=== PATIENT | female | born 1935 | race Caucasian/White ===

== ENCOUNTER 2019-10-13 14:26 | Inpatient (IN) ==
[2019-10-13] MEDS ORDERED: NS 1,000 ML IV ONE ×2 (14:50→21:00)
--- NOTE | 2019-10-13 14:57 | PROVIDER DOCUMENTATION ---
HPI-General Adult - General Chief Complaint: Fall Stated Complaint: FALL / WEAK Time Seen by Provider: 10/13/19 14:34 Source: patient, family (son) Allergies/Adverse Reactions: Patient Allergies Allergy/AdvReac Type Severity Reaction Status Date / Time codeine Allergy HIVES Verified 10/13/19 16:49 Home Medications: Home Medication List Medication Instructions Recorded Confirmed Last Taken Type Cholecalciferol (Vit D3) [Vitamin 5,000 unit PO DAILY 11/02/18 10/13/19 Unknown History D] Lorazepam 0.5 mg PO BID 11/02/18 10/13/19 Unknown History Memantine [Namenda] 10 mg PO BID 11/02/18 10/13/19 Unknown History Mirtazapine 30 mg PO HS 11/02/18 10/13/19 Unknown History Potassium Chloride 20 meq PO DAILY 11/02/18 10/13/19 Unknown History Rivastigmine [Exelon 9.5MG/24Hrs] 1 each TD DAILY 11/02/18 10/13/19 Unknown History Vitamin E 1,000 unit PO DAILY 11/02/18 10/13/19 Unknown History Vortioxetine Hydrobromide 5 mg PO HS 11/02/18 10/13/19 Unknown History [Trintellix] Amlodipine [Norvasc] 5 mg PO DAILY tablet 11/05/18 10/13/19 Unknown Rx Losartan [Cozaar] 50 mg PO DAILY tablet 11/05/18 10/13/19 Unknown Rx Olanzapine 15 mg PO QHS 10/13/19 10/13/19 Unknown History - History of Present Illness -Gen Adult Nature of Presenting Problems: 84yof present to ER with c/o generalized weakness. Son reports pt has declined over the past month, increased weakness, and frequent falls. Reports a fall this morning. Denies hitting head or LOC. Pt A&Ox3. Son reports pt had difficulty feeding herself this morning. States pt is requiring more assistance with ambulation. Location of Pain/Injury: reports: other (R shoulder) Pain Radiation: reports: no radiation Quality of Pain: reports: aching Onset/Duration: reports: this morning Associated Symptoms: reports: weakness, trouble walking. denies: chest pain, diaphoresis, diarrhea, fever/chills, genitourinary problems, nausea, shortness of breath, vomiting Review of Systems - Adult - REVIEW OF SYSTEMS - ADULT Constitutional: reports: no symptoms reported. denies: chills, fever Eyes: reports: no symptoms reported Ears, Nose, Mouth & Throat: reports: no symptoms reported Cardiovascular: reports: no symptoms reported. denies: chest pain Respiratory: reports: no symptoms reported. denies: shortness of breath Gastrointestinal: reports: no symptoms reported. denies: diarrhea, vomiting Genitourinary: reports: no symptoms reported. denies: dysuria, frequency Musculoskeletal: reports: see HPI, other (R shoulder pain) Integumentary: reports: no symptoms reported Neurological: reports: no symptoms reported. denies: dizziness/vertigo, headache/migraines, numbness, paresthesia, slurred speech Psychiatric: reports: no symptoms reported Endocrine: reports: no symptoms reported Hematologic/Lymphatic: reports: no symptoms reported Allergic/Immunologic: reports: no symptoms reported All Other Systems: Reviewed and Negative Past History - Adult - PAST MEDICAL HISTORY-ADULT Review of Records: reports: Old Records Reviewed, Nursing Assessment Review, Medications Reviewed, Social history reviewed & non-contributory. Major Childhood Illnesses: reports: denies history Cardiovascular: reports: HTN Respiratory: reports: denies history Gastrointestinal: reports: denies history Obstetrical/Gynecological: reports: denies history Genitourinary: reports: denies history Musculoskeletal: reports: denies history Neurological: reports: dementia Endocrine/Immune: reports: denies history Other Conditions: reports: denies history - PRIOR SURGERIES/PROCEDURES Surgical/Procedure History: reports: none - IMMUNIZATION STATUS Childhood Immunizations: See Nurse Assessment Flu Vaccine: See Nurse Assessment - FAMILY HISTORY Family History: reviewed, not pertinent Physical Exam-General - PHYSICAL EXAM-ADULT Initial Vital Signs Reviewed: Yes - CONSTITUTIONAL General Appearance: alert, no apparent distress, thin - HEAD, EARS, NOSE, MOUTH & THROAT HENMT: normal ENT inspection, TMs normal, pharynx normal, other (dry mucous membranes). negative: angioedema - NECK Neck: non-tender, full range of motion, supple, normal inspection. negative: C- spine tenderness - RESPIRATORY Respiratory: lungs clear, normal breath sounds, no respiratory distress, no accessory muscle use - CARDIOVASCULAR Cardiovascular: regular rate, rhythm - GASTROINTESTINAL (ABDOMEN) Abdominal Exam: normal bowel sounds, non tender, soft. negative: distended, guarding, rigid, rebound - MUSCULOSKELETAL Back Exam: normal inspection, no CVA tenderness, no vertebral tenderness Extremity: normal range of motion, normal inspection, no pedal edema, normal capillary refill - SKIN Integumentary: normal color, warm/dry. negative: diaphoresis, jaundice - NEUROLOGIC Neurologic: grossly normal - PSYCHIATRIC Psych/Mental Status: normal mood/affect, oriented x 3 Progress - PLAN OF CARE/RESULTS Progress/Plan/Lab Results: Vital Signs - 8 hr 10/13/19 14:36 Temperature 98 F Pulse Rate 80 Respiratory Rate 18 Blood Pressure 154/82 O2 Sat by Pulse Oximetry 94 L Orders Category Date Time Status Nursing- Obtain EKG ONCE Care 10/13/19 14:43 Active CHEST-PORTABLE [RAD] Stat Exams 10/13/19 14:[address] HEAD/C-SPINE W/O CONTRAST [CT] Stat Exams 10/13/19 14:48 Ordered SHOULDER-RIGHT [RAD] Stat Exams 10/13/19 14:48 Ordered CBC WITH DIFF [HEME] Stat Lab 10/13/19 14:43 Ordered CK PROFILE [SP CHEM] Stat Lab 10/13/19 14:43 Ordered COMPREHENSIVE METABOLIC PANEL [CHEM] Stat Lab 10/13/19 14:43 Uncollected PT [PROTIME WITH INR] [COAG] Stat Lab 10/13/19 14:48 Uncollected PTT [COAG] Stat Lab 10/13/19 14:48 Uncollected TROPONIN T Stat Lab 10/13/19 14:43 Ordered URINALYSIS W/POSS RFLX CULT [URINALYSIS] Stat Lab 10/13/19 14:43 Uncollected 0.9% Sodium Chloride Inj [Ns] 1,000 ml Med 10/13/19 14:50 Ordered IV 125 mls/hr EKG [EKG] Stat Ther 10/13/19 14:43 Ordered Result Diagrams: 10/13/19 16:30 10/13/19 16:30 - REASSESSMENT Reassessment #1 Time Reassessed: 17:30 (Discussed results with pt and son. Agree with possible admission for rehab placement) - EKG 1 Time of EKG reading by physician:: 14:56 EKG Read and Signed by:: Luis Alfredo Quispe Rate: 79 Rhythm: NSR - XRAY 1 XRAY Study: Chest Impression: See EMR Report ( EXAM: CHEST-PORTABLE - 10/13/2019 HISTORY: weakness TECHNIQUE: Portable chest COMPARISON: 11/02/2018 FINDINGS: Heart size is normal. There is stable right midlung granuloma from old granulomatous disease. Lungs otherwise appear clear. There is no pleural effusion or pneumothorax identified. IMPRESSION: No evidence of acute disease.) 2 XRAY: Right XRAY Study: Shoulder Impression: See EMR Report (EXAM: SHOULDER-RIGHT - 10/13/2019 HISTORY: R shoulder pain TECHNIQUE: Right shoulder two views COMPARISON: None. FINDINGS: There are degenerative changes. There is mild smooth deformity of inferior the glenoid neck which is likely long-standing. There is no acute- appearing fracture or dislocation identified. IMPRESSION: Degenerative changes. No evidence of fracture or dislocation. Electronically signed by Bobby Flores 10/13/2019 4:11 PM) - CT/MRI 1 CT Study: Head Impression: See EMR Report ( EXAM: CT HEAD/C-SPINE W/O CONTRAST - 10/13/2019 HISTORY: confusion, fall TECHNIQUE: CT head/cervical spine without contrast COMPARISON: None. FINDINGS: CT head: There are atrophic changes and chronic appearing microvascular ischemic changes. There is no indication of recent infarct, although acute infarcts may not be immediately visible. There is a small amount of cortical increased density at the inferior right frontal lobe which may relate to mild contusion, although is possible that this could be artifact from motion. There is no other evidence of intracranial hemorrhage, mass effect, or midline shift. There is a 0.9 cm calcified meningioma noted at the left parietal region. There is no evidence of skull fracture. Visualized portions of paranasal sinuses and mastoid air cells appear clear. CT cervical spine: There is multilevel degenerative disc and degenerative facet disease. There is 2 mm anterolisthesis at C4-5 associated with facet degenerative disease There is associated moderate spinal stenosis at C5-6. There is mild spinal stenosis at other levels. There is multilevel degenerative neural foraminal stenosis. There is no fracture, subluxation, or precervical soft tissue swelling identified. IMPRESSION: CT head: Atrophic changes and chronic microvascular ischemic changes. Possible mild cortical contusion at inferior right frontal lobe. No mass effect. CT cervical spine: Multilevel degenerative disease with multilevel spinal and neural foraminal stenosis. No evidence of fracture or subluxation. This exam was performed using automated exposure control, adjustment of mA or kV according to patient size, and/or use of iterative reconstruction technique. Electronically signed by Bobby Flores 10/13/2019 4:32 PM) - CONSULTS/PCP/HOSPITALIST Notification #1 *Consult/PCP/Hospitalist*: Dr Moroe Time Discussed: 17:43 Consult Disposition: Will see in ED, Admit Departure - Departure Date of Disposition Decision: 10/13/19 Time of Disposition Decision: 17:44 DIAGNOSIS: Weakness, Declining mobility Disposition: ADMITTED INPATIENT 09 Certified Medical Emergency: Emergent Condition: Fair Referrals and Follow-Ups: Ly Moncada MD [Primary Care Provider] - - Critical Care Note This patient required my direct & personal management of CC.: No Attestation - Physician/ MARC Attestation Patient care was provided by Advanced Practice Provider:: Yes Advanced Practice Provider:: Micheline Kidd Advanced Practice Provider documentation review:: The Mid-level provider documentation, treatment plan and medical decision making was reviewed by the physician who agrees with all treatment and medical decision making by the MLP. The physician spent face to face time with patient:: No Advanced Practice Provider documentation review:: Supervising physician onsite and consulted in the evaluation and care of this patient. The physician did not have a face to face encounter with the patient.
--- NOTE | 2019-10-13 16:04 | EKG Report ---
Test Performed on : 10/13/2019 2:56:51 PM Test Reason : weakness Blood Pressure : / mmHG Vent. Rate : 079 BPM Atrial Rate : 079 BPM P-R Int : 162 ms QRS Dur : 078 ms QT Int : 374 ms P-R-T Axes : 035 034 028 degrees QTc Int : 428 ms Normal sinus rhythm. Normal ECG When compared with ECG of 02-NOV-2018 11:21, No significant change was found Unconfirmed Result
--- NOTE | 2019-10-13 16:14 | Diag Imaging Result Doc PS360 ---
EXAM: SHOULDER-RIGHT - 10/13/2019 HISTORY: R shoulder pain TECHNIQUE: Right shoulder two views COMPARISON: None. FINDINGS: There are degenerative changes. There is mild smooth deformity of inferior the glenoid neck which is likely long-standing. There is no acute-appearing fracture or dislocation identified. IMPRESSION: Degenerative changes. No evidence of fracture or dislocation. Electronically signed by Bobby Flores 10/13/2019 4:11 PM
--- NOTE | 2019-10-13 16:15 | Diag Imaging Result Doc PS360 ---
EXAM: CHEST-PORTABLE - 10/13/2019 HISTORY: weakness TECHNIQUE: Portable chest COMPARISON: 11/02/2018 FINDINGS: Heart size is normal. There is stable right midlung granuloma from old granulomatous disease. Lungs otherwise appear clear. There is no pleural effusion or pneumothorax identified. IMPRESSION: No evidence of acute disease. Electronically signed by Bobby Flores 10/13/2019 4:13 PM
--- NOTE | 2019-10-13 16:35 | Diag Imaging Result Doc PS360 ---
EXAM: CT HEAD/C-SPINE W/O CONTRAST - 10/13/2019 HISTORY: confusion, fall TECHNIQUE: CT head/cervical spine without contrast COMPARISON: None. FINDINGS: CT head: There are atrophic changes and chronic appearing microvascular ischemic changes. There is no indication of recent infarct, although acute infarcts may not be immediately visible. There is a small amount of cortical increased density at the inferior right frontal lobe which may relate to mild contusion, although is possible that this could be artifact from motion. There is no other evidence of intracranial hemorrhage, mass effect, or midline shift. There is a 0.9 cm calcified meningioma noted at the left parietal region. There is no evidence of skull fracture. Visualized portions of paranasal sinuses and mastoid air cells appear clear. CT cervical spine: There is multilevel degenerative disc and degenerative facet disease. There is 2 mm anterolisthesis at C4-5 associated with facet degenerative disease There is associated moderate spinal stenosis at C5-6. There is mild spinal stenosis at other levels. There is multilevel degenerative neural foraminal stenosis. There is no fracture, subluxation, or precervical soft tissue swelling identified. IMPRESSION: CT head: Atrophic changes and chronic microvascular ischemic changes. Possible mild cortical contusion at inferior right frontal lobe. No mass effect. CT cervical spine: Multilevel degenerative disease with multilevel spinal and neural foraminal stenosis. No evidence of fracture or subluxation. This exam was performed using automated exposure control, adjustment of mA or kV according to patient size, and/or use of iterative reconstruction technique. Electronically signed by Bobby Flores 10/13/2019 4:32 PM
[2019-10-13 16:48] LABS: BASO# 0.04 X1000 (0.0-0.2); BASO% 0.4 % (0.0-0.8); EOS# 0.04 X1000 (0.0-0.7); EOS% 0.4 % (0.0-10.0); HEMOGLOBIN 13.6 g/dL (12.0-16.0); IMM GRAN# 0.03 X1000 (0.0-0.04); IMM GRAN% 0.3 % (0.0-0.5); LYMPH# 2.02 X1000 (1.2-3.4); LYMPH% 20.2 % (20.5-51.1); MCH 28.6 PG (27-31); MCHC 33.2 g/dL (33-37); MCV 86.3 FL (81-99); MONO# 1.16 X1000 (0.11-0.59); MONO% 11.6 % (1.7-9.3); MPV 10.9 FL (7.4-10.4); NEUT# 6.71 X1000 (1.4-6.5); NEUT% 67.1 % (42.2-75.2); PLT 168 X1000 (130-400); RBC 4.75 XMIL (4.2-5.4); RDW 14.3 % (11.5-14.5)
[2019-10-13 17:08] LABS: AGAP 16; ALBUMIN 4.4 g/dL (3.5-5.0); ALKALINE PHOSPHATASE 73 U/L (32-104); BUN 12 mg/dL (8-22); CALCIUM 9.5 mg/dL (8.8-10.2); CHLORIDE 108 mmol/L (98-107); COSMO 288; CREATININE 0.7 mg/dL (0.5-0.9); ESTIMATED GFR > 60; GLUCOSE 96 mg/dL (70-104); GOT 51 U/L (10-30); GPT 20 U/L (10-36); POTASSIUM 3.6 mmol/L (3.5-5.1); SODIUM 145 mmol/L (136-145); TCO2 22 mmol/L (25-35); TOTAL PROTEIN 7.3 g/dL (6.3-8.3)
[2019-10-13 17:23] LABS: URINE SOURCE CATH
[2019-10-13 17:27] LABS: BILIRUBIN URINE NEGATIVE (NEGATIVE); BLOOD URINE NEGATIVE (NEGATIVE); COLOR YELLOW; GLUCOSE URINE NEGATIVE (NEGATIVE); KETONE URINE NEGATIVE (NEGATIVE); LEUKOCYTES URINE NEGATIVE (NEGATIVE); NITRITE URINE NEGATIVE (NEGATIVE); PH URINE 6.5; PROTEIN URINE NEGATIVE (NEGATIVE); SP GRAVITY URINE 1.013; TURBIDITY URINE CLEAR (CLEAR); UROBILINOGEN URINE NORMAL (NORMAL)
[2019-10-13 17:28] LABS: UR EPITHELIAL CELLS <10 /HPF (<10); URINE BACTERIA NEGATIVE /HPF; URINE RBC <10 /HPF (<10); URINE WBC <10 /HPF (<10)
[2019-10-13 17:51] LABS: CK INDEX 0.8 (0.0-2.5); CK-MB 19.74 ng/mL (0.0-5.0)
[2019-10-13 18:24] LABS: INR 0.94
[2019-10-13 18:25] LABS: PTT 28.9 Seconds (22.3-41.8)
[2019-10-13] MEDS ORDERED: ZOFRAN IV PRN (19:03)
[2019-10-13] MEDS ORDERED: TYLENOL PO PRN (19:03)
--- NOTE | 2019-10-13 19:39 | HISTORY AND PHYSICAL ---
PRIMARY CARE PROVIDER: Dr. Ly Moncada. CHIEF COMPLAINT: Generalized weakness, multiple falls. HISTORY OF PRESENT ILLNESS: Ms. Lopez is an 84-year-old female who carries a past medical history of hypertension, dementia, anxiety, situational depression, and ADHD. She was brought into the [facility] with family reporting that she has had multiple falls. Over the last few weeks she has become progressively weaker. She has had a weight loss over the last month. The son at the bedside was unsure of how much. He said it is not a great deal, but she has lost some. She does not feel like she has had any change in her appetite; however, this morning she was too weak to even eat her breakfast. She did have a fall this morning. She denies hitting her head or having any loss of consciousness. She does live with a granddaughter, and her son and daughter will rotate out taking turns sitting with her on the weekends. Workup in the ED with a head and cervical spine CT showed atrophic changes and chronic microvascular ischemic changes and a possible mild cortical contusion at the inferior right frontal lobe, but no mass effect, and multilevel degenerative disease with multilevel spinal and neural foraminal stenosis, but no fracture or subluxation. Shoulder x-ray showed degenerative changes but nothing acute. EKG shows normal sinus rhythm. Laboratory data shows an elevated CK and CK-MB with a slightly elevated troponin. She denies any chest pain. No headache. No fever. No chills. No cough. No shortness of breath. No palpitations. No nausea, vomiting, diarrhea, or constipation. She will be admitted to the hospital for generalized weakness, adult failure to thrive and multiple falls. We will place a consult for Electrical Assistant and Physical Therapy. PHYSICAL EXAMINATION: VITAL SIGNS: Temperature is 98, heart rate 76, respirations 16, blood pressure 147/85. O2 is 96% on room air. GENERAL: Ms. Lopez is an 84-year-old female who is sitting up in the bed in no acute distress. She does have a visible tremor. She could not tell me much about how she felt. She kept looking to her son and asked him for assistance. HEENT: Atraumatic, normocephalic. PERRL. NECK: Supple. Trachea midline. CARDIOVASCULAR: S1, S2 appreciated. No murmurs, gallops, or rubs noted. RESPIRATORY: Lung sounds clear bilaterally. GI: Soft, nontender, nondistended. Positive bowel sounds, 4 quadrants. LOWER EXTREMITIES: Negative for edema. NEUROLOGIC: The patient is awake, alert. She does answer some questions. She does look to her son to answer most. She does have visible tremors. DIAGNOSTIC DATA: Chest x-ray negative exam. Head and cervical spine CT: Atrophic changes and chronic microvascular ischemic changes and a possible mild cortical contusion at the inferior right frontal lobe. Multilevel degenerative disease with multilevel spinal and neural foraminal stenosis. Shoulder x-ray: Degenerative changes, no fracture or dislocation. LABORATORY DATA: White count 10, hemoglobin and hematocrit 13 and 41, platelet count is 168. Sodium 145, potassium 3.6, BUN 12, creatinine 0.7, blood glucose is 96. AST 51. CK is 2353. CK- MB is 1974, troponin 0.040. Urinalysis is negative. ASSESSMENT AND PLAN: 1. Generalized weakness with multiple falls at home. Head CT did show a possible mild cortical contusion at the inferior right frontal lobe. We will place the patient on fall precautions. Consult Physical Therapy, Electrical Assistant for possible rehab placement. 2. Elevated CK. We will aggressively hydrate her overnight, recheck her CK and CK-MB in the morning as well as continue to trend her troponins. They are slightly above normal. She adamantly denies any chest pain. 3. Hypertension. Will continue home medications. 4. Dementia. We will continue home medications. 5. Anxiety and situational depression. We will continue home medications. 6. ADHD. 7. Further recommendations to follow physician evaluation, laboratory and diagnostic data. Dictated by DEVAN Roblero for Javan Mayorga MD cc: MD Ly Bell MD
--- NOTE | 2019-10-13 19:52 | HISTORY AND PHYSICAL ---
ADDENDUM: Patient seen and examined by myself. Full note dictated and discussed with nurse practitioner. Patient presented to the hospital due to due to being very weak, fatigued and tired. She has had frequent falls and increased weakness. Denies hitting her head or loss of consciousness. She has had difficulty feeding herself. She does have a history of dementia and hypertension. We are going to admit her to the hospital and attempt to adjust her home medications to see if that is the cause of her weakness. Will follow her blood pressure. We will get physical therapy involved. Further orders as needed. cc: Javan Mayorga MD
[2019-10-13] MEDS: ZYPREXA PO SCH (20:37)
[2019-10-13] MEDS: NAMENDA PO SCH (20:38)
[2019-10-13] MEDS: REMERON PO SCH (20:38)
[2019-10-13] MEDS ORDERED: ATIVAN PO SCH (21:00)
[2019-10-13] MEDS ORDERED: TRINTELLIX PO SCH (21:00)
[2019-10-14 06:35] LABS: BASO# 0.04 X1000 (0.0-0.2); BASO% 0.5 % (0.0-0.8); EOS# 0.07 X1000 (0.0-0.7); EOS% 0.9 % (0.0-10.0); HEMATOCRIT 44.2 % (37.0-47.0); HEMOGLOBIN 14.5 g/dL (12.0-16.0); IMM GRAN# 0.01 X1000 (0.0-0.04); IMM GRAN% 0.1 % (0.0-0.5); LYMPH# 1.63 X1000 (1.2-3.4); LYMPH% 20.1 % (20.5-51.1); MCH 28.3 PG (27-31); MCHC 32.8 g/dL (33-37); MCV 86.3 FL (81-99); MONO% 9.9 % (1.7-9.3); MPV 11.3 FL (7.4-10.4); NEUT# 5.54 X1000 (1.4-6.5); NEUT% 68.5 % (42.2-75.2); PLT 164 X1000 (130-400); RBC 5.12 XMIL (4.2-5.4); RDW 14.3 % (11.5-14.5); WBC 8.09 X1000 (4.8-10.8)
[2019-10-14 07:02] LABS: AGAP 17; ALBUMIN 4.3 g/dL (3.5-5.0); ALKALINE PHOSPHATASE 71 U/L (32-104); BUN 7 mg/dL (8-22); CALCIUM 9.3 mg/dL (8.8-10.2); CHLORIDE 107 mmol/L (98-107); COSMO 291; CREATININE 0.6 mg/dL (0.5-0.9); ESTIMATED GFR > 60; GLUCOSE 107 mg/dL (70-104); GOT 56 U/L (10-30); GPT 23 U/L (10-36); MAGNESIUM 1.7 mg/dL (1.5-2.7); POTASSIUM 3.2 mmol/L (3.5-5.1); SODIUM 147 mmol/L (136-145); TCO2 23 mmol/L (25-35); TOTAL PROTEIN 7.3 g/dL (6.3-8.3)
[2019-10-14 07:26] LABS: CK PROFILE 1866 U/L (24-173)
[2019-10-14 07:42] LABS: CK INDEX 0.9 (0.0-2.5); CK-MB 17.53 ng/mL (0.0-5.0)
[2019-10-14] MEDS ORDERED: COZAAR PO SCH (09:00)
[2019-10-14] MEDS: NS 1,000 ML IV SCH ×3 (10:25→20:46)
[2019-10-14] MEDS: NAMENDA PO SCH ×2 (11:57→20:44)
[2019-10-14] MEDS: KLOR-CON PO SCH (11:57)
[2019-10-14] MEDS: TRINTELLIX PO SCH (11:57)
[2019-10-14] MEDS: EXELON 9.5MG/24HRS TD SCH (11:57)
[2019-10-14] MEDS: VITAMIN E PO SCH (11:57)
--- NOTE | 2019-10-14 11:57 | PROGRESS NOTE ---
DATE: 10/14/2019 SUBJECTIVE: The patient has no new complaints. PHYSICAL EXAMINATION: Vital Signs: Temperature 97.8, pulse 90, respiratory rate 18, BP 146/78. General: The patient is awake, alert, currently in no distress. HEENT: Normocephalic. Neck: Supple. Cardiovascular: Regular rate. Chest: Clear. Abdomen: Soft. Extremities: Moves all extremities. ASSESSMENT: 1. Generalized weakness with multiple falls at home. 2. Elevated CPK. CPK is down from 2357 to 1866. 3. Hypertension. 4. Dementia. 5. Situational depression. 6. Hypokalemia. 7. Hypernatremia. 8. Hyperglycemia. PLAN: We are going to continue the patient in the hospital. Continue IV fluids. Continue physical therapy, and will adjust as needed. cc: Javan Mayorga MD
[2019-10-14] MEDS: VITAMIN D PO SCH (11:58)
[2019-10-14] MEDS: NORVASC PO SCH (11:58)
[2019-10-14] MEDS: ATIVAN PO SCH ×2 (11:58→20:43)
--- NOTE | 2019-10-14 13:24 | EKG Report ---
Test Performed on : 10/14/2019 12:48:29 PM Test Reason : ABNORMAL TELE Blood Pressure : / mmHG Vent. Rate : 070 BPM Atrial Rate : 267 BPM P-R Int : 158 ms QRS Dur : 076 ms QT Int : 418 ms P-R-T Axes : 052 060 055 degrees QTc Int : 451 ms Marked sinus bradycardia. Otherwise normal ECG When compared with ECG of 13-OCT-2019 14:56, (Unconfirmed) Current undetermined rhythm precludes rhythm comparison, needs review Confirmed by Alverto Salguero MD ([id number]) on 10/19/2019 7:33:04 AM
[2019-10-14] MEDS: ZYPREXA PO SCH (20:43)
[2019-10-14] MEDS: REMERON PO SCH (20:44)
[2019-10-15 06:04] LABS: HEMATOCRIT 43.8 % (37.0-47.0); HEMOGLOBIN 14.5 g/dL (12.0-16.0); MCH 28.4 PG (27-31); MCHC 33.1 g/dL (33-37); MCV 85.7 FL (81-99); MPV 11.2 FL (7.4-10.4); RBC 5.11 XMIL (4.2-5.4); RDW 14.3 % (11.5-14.5); WBC 9.6 X1000 (4.8-10.8)
[2019-10-15 06:21] LABS: AGAP 15; ALBUMIN 3.9 g/dL (3.5-5.0); ALKALINE PHOSPHATASE 66 U/L (32-104); BUN 4 mg/dL (8-22); CALCIUM 8.9 mg/dL (8.8-10.2); CHLORIDE 108 mmol/L (98-107); COSMO 284; CREATININE 0.6 mg/dL (0.5-0.9); ESTIMATED GFR > 60; GLUCOSE 145 mg/dL (70-104); GOT 40 U/L (10-30); GPT 21 U/L (10-36); POTASSIUM 2.8 mmol/L (3.5-5.1); SODIUM 143 mmol/L (136-145); TCO2 21 mmol/L (25-35); TOTAL PROTEIN 7.1 g/dL (6.3-8.3)
[2019-10-15 06:28] LABS: CK PROFILE 691 U/L (24-173)
[2019-10-15 06:54] LABS: CK INDEX 0.8 (0.0-2.5); CK-MB 5.83 ng/mL (0.0-5.0)
[2019-10-15] MEDS ORDERED: KLOR-CON PO ONE (07:10)
[2019-10-15] MEDS ORDERED: NORCO-7.5 PO PRN (07:10)
[2019-10-15] MEDS: ATIVAN PO SCH ×2 (09:20→20:59)
[2019-10-15] MEDS: VITAMIN E PO SCH (09:20)
[2019-10-15] MEDS: COZAAR PO SCH (09:21)
[2019-10-15] MEDS: NAMENDA PO SCH ×2 (09:21→21:00)
[2019-10-15] MEDS: NORVASC PO SCH (09:21)
[2019-10-15] MEDS: VITAMIN D PO SCH (09:21)
[2019-10-15] MEDS: KLOR-CON PO SCH (09:21)
[2019-10-15] MEDS: EXELON 9.5MG/24HRS TD SCH (09:22)
[2019-10-15] MEDS: TRINTELLIX PO SCH (09:22)
[2019-10-15] MEDS: REMERON PO SCH (21:00)
[2019-10-15] MEDS: ZYPREXA PO SCH (21:00)
--- NOTE | 2019-10-16 00:51 | PROGRESS NOTE ---
DATE: 10/15/2019 SUBJECTIVE: The patient with no complaints, is in the room. OBJECTIVE: Vital Signs: Reviewed. Temperature 97 degrees, pulse 96, respiratory rate 18, blood pressure 179/76. General: The patient is pleasant. She is in no distress, lying in bed. HEENT: Normocephalic. Neck: Supple. Cardiovascular: Regular rate. Chest: Clear. Abdomen: Soft. Extremities: Moves all extremities. ASSESSMENT: 1. Generalized weakness with multiple falls. 2. Adult failure to thrive. 3. Rhabdomyolysis, resolved. CPK was 2357, currently 691. 4. Hypertension. 5. Hyperkalemia. Potassium is still low at 2.8. We are going to replace. 6. Dementia. PLAN: We will continue the patient in the hospital. Certainly expect that she is going to need rehabilitation on discharge. Replace her potassium. Follow her blood pressures. Further orders as needed. cc: Javan Mayorga MD
[2019-10-16 05:39] VITALS: BP 165/85
[2019-10-16 09:44] LABS: HEMATOCRIT 42.3 % (37.0-47.0); HEMOGLOBIN 13.9 g/dL (12.0-16.0); MCH 28.7 PG (27-31); MCHC 32.9 g/dL (33-37); MCV 87.4 FL (81-99); MPV 11.1 FL (7.4-10.4); RBC 4.84 XMIL (4.2-5.4); RDW 14.8 % (11.5-14.5); WBC 9.32 X1000 (4.8-10.8)
[2019-10-16] MEDS: KLOR-CON PO SCH (10:09)
[2019-10-16] MEDS: COZAAR PO SCH (10:09)
[2019-10-16] MEDS: VITAMIN D PO SCH (10:10)
[2019-10-16] MEDS: NAMENDA PO SCH (10:10)
[2019-10-16] MEDS: TRINTELLIX PO SCH (10:10)
[2019-10-16] MEDS: VITAMIN E PO SCH (10:10)
[2019-10-16] MEDS: EXELON 9.5MG/24HRS TD SCH (10:10)
[2019-10-16] MEDS: NORVASC PO SCH (10:10)
[2019-10-16] MEDS: ATIVAN PO SCH (10:10)
[2019-10-16 10:11] LABS: AGAP 12; ALBUMIN 3.8 g/dL (3.5-5.0); ALKALINE PHOSPHATASE 64 U/L (32-104); BUN 5 mg/dL (8-22); CALCIUM 9.2 mg/dL (8.8-10.2); CHLORIDE 104 mmol/L (98-107); COSMO 280; CREATININE 0.6 mg/dL (0.5-0.9); ESTIMATED GFR > 60; GLUCOSE 100 mg/dL (70-104); GOT 30 U/L (10-30); GPT 19 U/L (10-36); POTASSIUM 3.4 mmol/L (3.5-5.1); SODIUM 142 mmol/L (136-145); TCO2 26 mmol/L (25-35); TOTAL PROTEIN 7.1 g/dL (6.3-8.3)
--- NOTE | 2019-10-16 11:29 | DISCHARGE SUMMARY ---
ADMISSION DATE: 10/13/2019 DISCHARGE DATE: 10/16/2019 PRIMARY CARE PHYSICIAN: Dr. Ly Moncada. ADMISSION DIAGNOSES: 1. Generalized weakness with multiple falls at home. 2. An elevated CK. 3. Hypertension. 4. Dementia. 5. Anxiety and situational depression. 6. Attention deficit hyperactivity disorder. DISCHARGE DIAGNOSES: 1. Generalized weakness with multiple falls. 2. Adult failure to thrive. 3. Rhabdomyolysis, resolved. 4. Hypertension. 5. Hypokalemia, improved. 6. Dementia. SUMMARY OF FINDINGS: This is an 84-year-old female who presented with family to the emergency room after she had been having multiple falls and becoming progressively weaker, had weight loss over the last month but unsure exactly how much. Workup in the ED showed a CT of the head with atrophic changes and chronic microvascular ischemic changes and possible mild cortical contusion at the inferior right frontal lobe, but no mass effect and multilevel degenerative disease with multilevel spinal and neuroforaminal stenosis, but no fracture or subluxation. Her lab data showed an elevated CK, CK-MB, and a slightly elevated troponin. She was admitted, placed on fall precautions. We consulted Physical Therapy. She was given IV hydration and her CK, CK-MB are back to normal. Her potassium was supplemented and is up to 3.4 today and it is now felt that she can safely be discharged to rehab. DISCHARGE MEDICATIONS: Include amlodipine 5 mg p.o. daily, vitamin D3 5000 units p.o. daily, [place] 7.5 one p.o. daily p.r.n., Ativan 0.5 mg p.o. b.i.d., memantine 10 mg p.o. b.i.d., mirtazapine 30 mg p.o. at bedtime, olanzapine 15 mg p.o. at bedtime, Exelon 9.5 mg patch transdermally daily, vitamin E, Trintellix X 5 mg p.o. daily, fluconazole 2 sprays daily, losartan 50 mg p.o. daily, omeprazole 40 mg p.o. daily, potassium 20 mEq p.o. daily. FOLLOWUP: She will need to follow up with primary care physician once completed with her rehab stay. TIME SPENT: A 35 minute discharge. Dictated by DEVAN Vega for Patrick Rivero MD cc: DEVAN Vega MD Marlin D. Gill, MD
--- NOTE | 2019-10-17 09:48 | DISCHARGE SUMMARY ---
ADMISSION DATE: 10/13/2019 DISCHARGE DATE: 10/16/2019 DISCHARGE ADDENDUM: The patient is complaining of sore throat today, but other than that seems to be no major complaints. Still seems very weak, tired. Vital signs are all stable. Cardiovascular regular rate and rhythm. Pulmonary bilateral breath sounds clear to auscultation. GI was soft, nontender, nondistended. Bowel sounds are positive. Her potassium is up to 3.4. Discharge medications are reviewed and will be dictated in accessory discharge. Will recommend check basic and CBC in about a week. DISCHARGE CONDITION: Stable. TIME SPENT: 32 minute discharge. cc: Patrick Rivero MD
== END 2019-10-16 14:44 | DRG 947 ==
LOC: P.ED 14:26 → P.MEDSURG 18:52 → SUATTDRO 18:52
PROVIDERS: ATTEND Internal Medicine